=== PATIENT | female | born 1970 | race Caucasian/White ===

== ENCOUNTER → 2017-11-02 07:54 | Outpatient (CLI) | payer OTHER | END | disposition home or self-care (01) | LOC: D.US 07:54 | DX: R10.11 Right upper quadrant pain (principal) ==

== ENCOUNTER 2019-07-04 19:08 | Emergency (ER) | payer OTHER ==
[~2019-07-04] VITALS: Ht 167.6 cm; Wt 90.9 kg
[2019-07-04 19:13] VITALS: Ht 167.6 cm; Wt 90.9 kg
[2019-07-04] MEDS ORDERED: PROZAC40 MG PO (19:14)
[2019-07-04] MEDS ORDERED: MULTI-DAY VITAM1 TAB PO (19:15)
[2019-07-04] MEDS ORDERED: SYNTHROID100 MCG PO (19:15)
[2019-07-04] MEDS ORDERED: VITAMIN B-121000 MCG PO (19:15)
[2019-07-04 19:43] LABS: BASOPHILS 0.1 % (0-2); EOSINOPHILS 0.4 % (0-7); HEMATOCRIT 34.1 % (36.0-48.0); HEMOGLOBIN 11.2 g/dL (12-16); IMMATURE GRANULOCYTES 0.3 % (0-5); LYMPHOCYTES 9.2 % (15-50); MCH 28.9 pg (26.0-34.0); MCHC 32.8 g/dL (31.0-37.0); MCV 87.9 fL (80.0-100.0); MEAN PLATELET VOLUME 9.5 fL (7.4-10.4); PLATELET COUNT 246 10x3/uL (130-400); RBC 3.88 10x6/uL (4.00-5.40); RDW 12.5 % (11.5-14.5); WBC 7.6 10x3/uL (4.8-10.8)
[2019-07-04 20:03] LABS: ALBUMIN 3.6 g/dL (3.4-5.0); ALKALINE PHOSPHATASE 135 U/L (46-116); ALT (SGPT) 18 U/L (10-68); BILIRUBIN - TOTAL 0.66 mg/dL (0.2-1.3); CALC OSMOLALITY 273 mosm/kg (275-300); CALCIUM 8.5 mg/dL (8.5-10.1); CARBON DIOXIDE 21.7 mmol/L (21.0-32.0); CHLORIDE - SERUM 105 mmol/L (98-107); CREATININE - SERUM 0.8 mg/dL (0.6-1.3); GLUCOSE 138 mg/dL (74-106); POTASSIUM - SERUM 3.6 mmol/L (3.5-5.1); PROTEIN - SERUM 7.1 g/dL (6.4-8.2); SODIUM 137 mmol/L (136-145); UREA NITROGEN 6 mg/dL (7-18); eGFR NON AFRICAN AMERICAN 81 mL/min (90-120)
[2019-07-04 20:07] LABS: AMYLASE - SERUM 42 U/L (25-115); LIPASE 89 U/L (73-393)
[2019-07-04 20:13] LABS: TROPONIN-I < 0.017 ng/mL (0.000-0.060)
[2019-07-04] MEDS ORDERED: ZOFRAN ODT4 MG/UDTAB PO (22:18)
[2019-07-04 22:40] LABS: APPEARANCE CLEAR (CLEAR); BILIRUBIN NEGATIVE (NEGATIVE); COLOR YELLOW (YELLOW); GLUCOSE NEGATIVE (NEGATIVE); KETONE LARGE mg/dL (NEGATIVE); NITRITE NEGATIVE (NEGATIVE); PROTEIN NEGATIVE (NEGATIVE); UROBILINOGEN NORMAL (NORMAL)
[2019-07-04 22:43] LABS: HCG URINE NEGATIVE (NEGATIVE)
[2019-07-04 23:20] VITALS: BP 121/75
== END 2019-07-04 23:14 | disposition home or self-care (01) ==
LOC: D.ER 19:08
PROVIDERS: Family Medicine
DX: R10.9 Unspecified abdominal pain (principal)